=== PATIENT | male | born 2000 | race Caucasian/White ===

== ENCOUNTER 2024-01-16 14:39 | Emergency (ER) | payer BC ==
[~2024-01-16] VITALS: Ht 177.8 cm; Wt 77.3 kg
[2024-01-16 14:45] VITALS: TEMP 97.6
[2024-01-16] MEDS ORDERED: NS 1,000 ML IV ONE (15:45)
[2024-01-16] MEDS ORDERED: Ondansetron 4 MG/2 ML VIAL IV ONE (15:45)
[2024-01-16 16:11] LABS: BASO # 0.1 K/mm3 (0.0-0.2); BASO % 1.3 % (0.0-2.0); EOS # 0.3 K/mm3 (0.0-0.7); EOS % 4.7 % (0.0-4.0); GRAN # 3.5 K/mm3 (1.4-6.5); GRAN % 57.1 % (42.2-75.2); HEMATOCRIT 45.7 % (42.0-52.0); HEMOGLOBIN 15.5 g/dl (13.5-18.0); LYMPH # 1.6 K/mm3 (1.2-3.4); LYMPH % 26.6 % (20.0-51.0); MEAN CELL VOLUME 89 fl (80.0-100.0); MEAN CORPUSCULAR HEMOGLOBIN 30 pg (27-31); MEAN CORPUSCULAR HGB CONC 34 g/dl (33.0-37.0); MEAN PLATELET VOLUME 10.3 fl (7.4-10.4); MONO # 0.6 K/mm3 (0.1-0.6); MONO % 10.1 % (1.7-9.3); PLATELET COUNT 213 K/mm3 (130-400); RED BLOOD COUNT 5.13 M/mm3 (4.20-5.60); REDCELL DISTRIBUTION WIDTH-CV 12.1 % (11.5-14.5)
[2024-01-16 16:13] LABS: URINE APPEARANCE CLEAR (CLEAR/HAZY); URINE BLOOD NEGATIVE (NEGATIVE); URINE COLOR YELLOW (YELLOW); URINE GLUCOSE NEGATIVE (NEGATIVE); URINE KETONE NEGATIVE (NEGATIVE); URINE NITRATE NEGATIVE (NEGATIVE); URINE PROTEIN(semi-quant) NEGATIVE (NEGATIVE)
[2024-01-16 16:19] LABS: ALBUMIN 4.6 g/dL (3.5-5.0); BILIRUBIN,TOTAL 0.5 mg/dL (0.2-1.2); C-REACTIVE PROTEIN 0.03 mg/dL (0.00-0.50); CALCIUM 10.1 mg/dL (8.4-10.2); CREATININE, serum 0.99 mg/dL (0.72-1.25); POTASSIUM 4.3 mEq/L (3.5-4.5); TOTAL PROTEIN 8.2 g/dl (6.2-8.1)
[2024-01-16 16:29] LABS: COLLECTION METHOD CLEAN CATCH
[2024-01-16 18:22] VITALS: BP 106/65; PULSE 71
== END 2024-01-16 18:22 | disposition home or self-care (01) ==
LOC: COL.ER 14:39
PROVIDERS: Nurse Practitioner
DX: R10.31 Right lower quadrant pain (principal)
CPT/HCPCS: J2405; J7030